=== PATIENT | male | born 1990 ===

== ENCOUNTER 2022-06-01 08:53 | Day surgery (SDC) | payer BC, OTHER ==
[~2022-06-01 08:53] MED LIST: Albuterol 0.083% 2.5 MG/3 ML Neb Soln NEB PRN; Famotidine 20 MG/2 ML SDV ONE; HYDROmorphone 1 MG/ML Syringe IVPUSH PRN; Lactated Ringers 1,000 ML IV SCH; Metoclopramide 10 MG/2 ML SDV IVPUSH PRN; Morphine 2 MG/ML SYRINGE IVPUSH PRN; Naloxone 0.4 MG/ML SDV IVPUSH PRN; Ondansetron 4 MG/2 ML SDV IVPUSH PRN; Propofol 200 MG/20 ML SDV ONE; Ropivacaine 0.5% 5 MG/ML 30 ML SDV ONE; Sodium Chloride 0.9% 10 ML Syringe FLUSH PRN; Sodium Chloride 0.9% 2.5 ML Syringe FLUSH PRN; Sodium Chloride 0.9% 20 ML SDV IV PRN; Water For Injection, Sterile 40 ML ONE; fentaNYL 100 MCG/2 ML SDV ONE; fentaNYL 50 MCG/ML SDV IVPUSH PRN
[2022-06-01] MEDS ORDERED: Propofol 200 MG/20 ML SDV ONE (09:12)
[2022-06-01] MEDS ORDERED: Bupivacaine 0.5% 30 ML SDV ONE (09:28)
[2022-06-01] MEDS ORDERED: Clindamycin Phosphate in D5W 600 MG in Premix Bag 1 BAG IV ONE ×2 (09:45)
[2022-06-01] MEDS ORDERED: fentaNYL 100 MCG/2 ML SDV ONE (09:54)
[2022-06-01] MEDS ORDERED: Dexamethasone 4 MG/ML 5 ML MDV ONE (09:58)
[2022-06-01] MEDS ORDERED: Dexmedetomidine 200 MCG/2 ML SDV ONE (09:58)
[2022-06-01] MEDS ORDERED: Ondansetron 4 MG/2 ML SDV ONE (09:58)
[2022-06-01] MEDS ORDERED: Ketorolac 30 MG/ML SDV ONE (09:58)
[2022-06-01] MEDS ORDERED: Lidocaine 2% 5 ML SDV ONE (09:59)
[2022-06-01] MEDS ORDERED: Rocuronium Bromide 50 MG/5 ML Syringe ONE ×2 (11:08→12:35)
[2022-06-01] MEDS ORDERED: Glycopyrrolate 0.2 MG/ML SDV ONE ×2 (11:19)
[2022-06-01] MEDS ORDERED: Sugammadex Sodium 200 MG/2 ML VIAL ONE (11:19)
[2022-06-01] MEDS ORDERED: ePHEDrine 50 MG/ML SDV ONE (11:19)
[2022-06-01] MEDS ORDERED: HYDROmorphone 2 MG/ML Syringe ONE (11:20)
[2022-06-01] MEDS ORDERED: Ropivacaine 0.5% 5 MG/ML 30 ML SDV ONE (11:40)
== END 2022-06-01 13:18 | disposition home or self-care (01) ==
LOC: MW.SDS 08:53
PROVIDERS: ATTEND Surgery
DX: K81.1 Chronic cholecystitis (principal); K82.8 Other specified diseases of gallbladder; F41.9 Anxiety disorder, unspecified; J45.909 Unspecified asthma, uncomplicated; K21.9 Gastro-esophageal reflux disease without esophagitis; E66.9 Obesity, unspecified; F17.290 Nicotine dependence, other tobacco product, uncomplicated; Z68.37 Body mass index [BMI] 37.0-37.9, adult; Z79.899 Other long term (current) drug therapy; Z88.1 Allergy status to other antibiotic agents; Z98.890 Other specified postprocedural states
CPT/HCPCS: 47562; J1100; J1170; J1885; J2405; J2704; J2795; J3010; J3490; J7120; 00790; 64488